=== PATIENT | male | born 1965 | race Caucasian/White ===

== ENCOUNTER → 2018-01-15 | Outpatient (CLI) | payer MEDICAID ==
[2018-01-15 10:16] LABS: HCT 49.8 % (39.0-53.0); HGB 16.3 gm/dL (13.0-17.5); MCH 31.2 pg (25.0-35.0); MCHC 32.7 g/dL (31.0-37.0); MCV 95.5 fL (80.0-100.0); Mean Platelet Volume 6.3; Platelet Count 214 k/uL (150-450); RBC 5.21 m/uL (4.30-5.90); RDW 13.2 % (11.5-15.5); WBC 6.2 k/uL (3.8-10.6)
[2018-01-15 10:27] LABS: Appearance,Urine Clear (Clear); Bilirubin,Urine Negative (Negative); Blood,Urine Negative (Negative); Color,Urine Yellow; Glucose,Urine (UA) Negative (Negative); Ketones,Urine Negative (Negative); Leukocyte Esterase,Urine Negative (Negative); Nitrite,Urine Negative (Negative); PH, Urine 5.5 (5.0-8.0); Protein,Urine Negative (Negative); Specific Gravity,Urine 1.016 (1.001-1.035); Urobilinogen,Urine <2.0 mg/dL (<2.0)
[2018-01-15 10:54] LABS: Albumin 4.1 g/dL (3.5-5.0); Calcium 9.1 mg/dL (8.4-10.2); Potassium 4.9 mmol/L (3.5-5.1); Total Bilirubin 0.5 mg/dL (0.2-1.3); Total Protein 6.9 g/dL (6.3-8.2); Uric Acid 6.6 mg/dL (3.5-8.5)
[2018-01-15 11:24] LABS: Prostate Specific Antigen 1.3 ng/mL (0.00-4.00)
== END | disposition home or self-care (01) ==
LOC: LABWHC1 09:24
PROVIDERS: ATTEND Family Medicine
DX: Z00.00 Encounter for general adult medical examination without abnormal findings (principal); M10.9 Gout, unspecified; Z13.9 Encounter for screening, unspecified
CPT/HCPCS: 36415; 80053; 80061; 81003; 84153; 84550; 85027; 86803

== ENCOUNTER → 2019-02-25 | Outpatient (CLI) | payer MEDICAID ==
[2019-02-25 13:53] LABS: HCT 52.1 % (39.0-53.0); HGB 17.5 gm/dL (13.0-17.5); MCH 32.3 pg (25.0-35.0); MCHC 33.6 g/dL (31.0-37.0); Mean Platelet Volume 5.8; Platelet Count 230 k/uL (150-450); RBC 5.42 m/uL (4.30-5.90); RDW 12.7 % (11.5-15.5); WBC 7.6 k/uL (3.8-10.6)
[2019-02-25 15:09] LABS: Appearance,Urine Clear (Clear); Bilirubin,Urine Negative (Negative); Blood,Urine Negative (Negative); Color,Urine Yellow; Glucose,Urine (UA) Negative (Negative); Ketones,Urine Negative (Negative); Leukocyte Esterase,Urine Negative (Negative); Nitrite,Urine Negative (Negative); PH, Urine 5.5 (5.0-8.0); Protein,Urine Trace (Negative); Specific Gravity,Urine 1.018 (1.001-1.035); Urobilinogen,Urine <2.0 mg/dL (<2.0)
[2019-02-25 20:46] LABS: African American GFR (CKD) 59.5 (60.0-200.0); Albumin 4.6 g/dL (3.80-4.90); Anion Gap 9.9 mmol/L (4.00-12.00); BUN/Creat Ratio 10.67 Ratio (12.00-20.00); Calcium 9.1 mg/dL (8.7-10.3); Carbon Dioxide 27.1 mmol/L (21.6-31.8); Chol/HDL Ratio 5.71; Globulin 2.3 g/dL (1.6-3.3); LDL Cholesterol,Calculated 158.8 mg/dL (0.0-131.0); Potassium 4.8 mmol/L (3.5-5.5); Total Bilirubin 0.9 mg/dL (0.3-1.2); Total Protein 6.9 g/dL (6.2-8.2); Uric Acid 6.8 mg/dL (3.7-8.7); VLDL Calculation 34.2 mg/dL (5.00-40.00)
== END | disposition home or self-care (01) ==
LOC: LABWHC1 12:39
PROVIDERS: ATTEND Family Medicine
DX: Z00.01 Encounter for general adult medical examination with abnormal findings (principal); M10.9 Gout, unspecified
CPT/HCPCS: 36415; 80053; 80061; 81003; 84153; 84550; 85027

== ENCOUNTER → 2020-02-21 | Outpatient (CLI) | payer MEDICAID ==
[2020-02-21 12:43] LABS: HCT 53.5 % (39.0-53.0); HGB 17.7 gm/dL (13.0-17.5); MCH 31.1 pg (25.0-35.0); MCHC 33.1 g/dL (31.0-37.0); Mean Platelet Volume 7.1; Platelet Count 237 k/uL (150-450); RDW 12.6 % (11.5-15.5); WBC 6.4 k/uL (3.8-10.6)
[2020-02-21 22:16] LABS: Albumin 4.5 g/dL (3.80-4.90); Albumin/Globulin Ratio 1.73 (1.60-3.17); Anion Gap 13.1 mmol/L (4.00-12.00); BUN/Creat Ratio 13.33 Ratio (12.00-20.00); Calcium 9.5 mg/dL (8.7-10.3); Carbon Dioxide 26.9 mmol/L (21.6-31.8); Chol/HDL Ratio 5.23; Globulin 2.6 g/dL (1.6-3.3); LDL Cholesterol,Calculated 147.4 mg/dL (0.0-131.0); Non-African American GFR(CKD) 50.9 (60.0-200.0); Potassium 5.6 mmol/L (3.5-5.5); Total Bilirubin 0.6 mg/dL (0.2-1.2); Total Protein 7.1 g/dL (6.2-8.2); Uric Acid 6.1 mg/dL (3.7-8.7); VLDL Calculation 21.6 mg/dL (5.00-40.00)
[2020-02-21 22:24] LABS: Prostate Specific Antigen 1.7 ng/mL (0.0-3.5)
== END | disposition home or self-care (01) ==
LOC: LABWHC1 11:00
PROVIDERS: ATTEND Family Medicine
DX: Z00.01 Encounter for general adult medical examination with abnormal findings (principal); M10.9 Gout, unspecified
CPT/HCPCS: 36415; 80053; 80061; 84153; 84550; 85027

== ENCOUNTER 2020-08-10 16:33 | Emergency (ER) | payer MEDICAID ==
[2020-08-10 16:42] VITALS: BP 119/79
[2020-08-10] MEDS ORDERED: SODIUM CHLORIDE 0.9% 1,000 ML IV STA (17:38)
[2020-08-10] MEDS ORDERED: ACETAMINOPHEN TAB 500 MG TAB PO STA (17:45)
[2020-08-10] MEDS ORDERED: IBUPROFEN 600 MG TAB PO STA (17:45)
[2020-08-10 18:22] LABS: Basophils % (A) 1 %; Eosinophils % (A) 0 %; HGB 16.6 gm/dL (13.0-17.5); Lymphocytes # (A) 0.5 k/uL (1.0-4.8); Lymphocytes % (A) 12 %; MCH 32.2 pg (25.0-35.0); MCHC 34.6 g/dL (31.0-37.0); MCV 93.2 fL (80.0-100.0); Mean Platelet Volume 7.2; Monocytes # (A) 0.2 k/uL (0-1.0); Monocytes % (A) 5 %; Neutrophils # (A) 3.7 k/uL (1.3-7.7); Neutrophils % (A) 82 %; Platelet Count 109 k/uL (150-450); RBC 5.15 m/uL (4.30-5.90); RDW 12.5 % (11.5-15.5); WBC 4.5 k/uL (3.8-10.6)
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
[2020-08-10 18:38] LABS: Calcium 8.3 mg/dL (8.4-10.2); Potassium 4.4 mmol/L (3.5-5.1); Total Bilirubin 0.9 mg/dL (0.2-1.3); Total Protein 6.7 g/dL (6.3-8.2)
--- NOTE | 2020-08-10 19:05 | XR ---
EXAMINATION TYPE: XR chest 1V portable DATE OF EXAM: 08/10/2020 COMPARISON: NONE HISTORY: Cough. TECHNIQUE: Single frontal view of the chest is obtained. FINDINGS: There are mild to moderate peripheral opacities in the mid to lower lungs bilaterally. No pleural effusion, or pneumothorax seen. The cardiac silhouette size is within normal limits. The o sseous structures are intact. IMPRESSION: Mild to moderate bilateral opacities, concerning for infiltrates.
[2020-08-10 19:23] VITALS: PULSE 88; RESP 18; TEMP 98.4
== END 2020-08-10 19:23 | disposition home or self-care (01) ==
LOC: EC 16:33
DX: U07.1 COVID-19 (principal)
CPT/HCPCS: 36415; 71045; 80053; 83690; 85025; 86140; 87635; 96360; 99285

== ENCOUNTER 2020-08-12 19:54 | Inpatient (IN) | payer MEDICAID ==
[2020-08-12] MEDS ORDERED: ALBUTEROL HFA INHALER INHALATION STA (21:26)
--- NOTE | 2020-08-12 21:48 | XR ---
EXAMINATION TYPE: XR chest 1V portable DATE OF EXAM: 08/12/2020 COMPARISON: NONE HISTORY: Cough. TECHNIQUE: Single frontal view of the chest is obtained. FINDINGS: There are bilateral diffuse moderate patchy opacities. No pleural effusion, or pneumothora x seen. The cardiac silhouette size is within normal limits. The osseous structures are intact. IMPRESSION: Bilateral infiltrates.
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
[2020-08-12 22:12] LABS: Basophils % (A) 0 %; Eosinophils % (A) 1 %; HCT 43.4 % (39.0-53.0); HGB 15.3 gm/dL (13.0-17.5); Lymphocytes # (A) 0.6 k/uL (1.0-4.8); Lymphocytes % (A) 11 %; MCH 32.5 pg (25.0-35.0); MCHC 35.2 g/dL (31.0-37.0); MCV 92.3 fL (80.0-100.0); Mean Platelet Volume 7.8; Monocytes # (A) 0.2 k/uL (0-1.0); Monocytes % (A) 3 %; Neutrophils # (A) 4.6 k/uL (1.3-7.7); Neutrophils % (A) 85 %; Platelet Count 103 k/uL (150-450); RDW 12.5 % (11.5-15.5); WBC 5.4 k/uL (3.8-10.6)
[2020-08-12 22:28] LABS: Albumin 3.1 g/dL (3.5-5.0); C Reactive Protein 87.6 mg/L (<10.0); Calcium 8.2 mg/dL (8.4-10.2); Magnesium 2.1 mg/dL (1.6-2.3); Potassium 4.1 mmol/L (3.5-5.1); Total Bilirubin 0.7 mg/dL (0.2-1.3); Total Protein 5.8 g/dL (6.3-8.2)
[2020-08-12 22:29] LABS: INR 0.9 (<1.2); Partial Thromboplastin Time 27.6 sec (22.0-30.0); Prothrombin Time 9.6 sec (9.0-12.0)
[2020-08-12] MEDS ORDERED: SODIUM CHLORIDE 0.9% 1,000 ML IV ONE (22:32)
[2020-08-12] MEDS ORDERED: DEXAMETHASONE SOD PHOSPHATE 10 MG/ML 1 ML VIAL IV STA (22:34)
[2020-08-12] MEDS ORDERED: IBUPROFEN 800 MG TAB PO PRN (22:47)
[2020-08-12] MEDS ORDERED: ONDANSETRON 4 MG/2 ML VIAL IVP PRN (22:47)
[2020-08-12] MEDS ORDERED: NALOXONE 0.4 MG/ML 1 ML VIAL IV PRN (22:47)
[2020-08-12] MEDS ORDERED: ACETAMINOPHEN TAB 325 MG TAB PO PRN (22:47)
[2020-08-12 23:11] LABS: D-Dimer 0.79 mg/L FEU (<0.60)
[2020-08-12] MEDS: SODIUM CHLORIDE 0.9% 1,000 ML IV SCH (23:43)
[2020-08-13] MEDS: ASCORBIC ACID 500 MG TAB PO SCH (08:25)
[2020-08-13] MEDS: ZINC SULFATE 220 MG CAP PO SCH (08:25)
[2020-08-13] MEDS ORDERED: ASCORBIC ACID IVPB SCH (09:00)
[2020-08-13] MEDS ORDERED: SODIUM CHLORIDE 0.9% IVPB SCH (09:00)
[2020-08-13] MEDS ORDERED: DEXAMETHASONE SOD PHOSPHATE 10 MG/ML 1 ML VIAL IV SCH (09:00)
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
[2020-08-13] MEDS ORDERED: REMDESIVIR 200 MG in SODIUM CHLORIDE 0.9% 250 ML IVPB ONE (10:00)
[2020-08-13] MEDS: CHOLECALCIFEROL 25 MCG (1000 IU) TABLET PO SCH (11:10)
[2020-08-13] MEDS: ENOXAPARIN 40 MG/0.4 ML SYRINGE SQ SCH (11:10)
[2020-08-13 12:42] LABS: Ferritin 2550.6 ng/mL (22.0-322.0)
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
[2020-08-13] MEDS: SODIUM CHLORIDE 0.9% 1,000 ML IV SCH ×2 (13:53→20:06)
[2020-08-14] MEDS: CHOLECALCIFEROL 25 MCG (1000 IU) TABLET PO SCH (08:22)
[2020-08-14] MEDS: allopurinoL 100 MG TAB PO SCH (08:22)
[2020-08-14] MEDS: ASCORBIC ACID 500 MG TAB PO SCH (08:23)
[2020-08-14] MEDS: ZINC SULFATE 220 MG CAP PO SCH (08:23)
[2020-08-14] MEDS: ENOXAPARIN 40 MG/0.4 ML SYRINGE SQ SCH (08:23)
[2020-08-14] MEDS: DEXAMETHASONE SOD PHOSPHATE 10 MG/ML 1 ML VIAL PO SCH (08:23)
[2020-08-14] MEDS ORDERED: NON FORMULARY DRUG (Omega-3 Fatty Acids/Fish Oil [Fish Oil 1,000 Mg Softgel] 1 EACH Capsul PO SCH (09:00)
[2020-08-14] MEDS ORDERED: REMDESIVIR 100 MG in SODIUM CHLORIDE 0.9% 250 ML IVPB SCH (10:00)
--- NOTE | 2020-08-14 10:12 | P.PN ---
Subjective Progress Note Date: 08/14/20 This 55-year-old male patient came into the emergency yesterday diagnosed having a COVID 19 related pneumonia. The patient was diagnosed with infection on 08/10/2020. pulse ox was 83%. He was getting short of breath. He also reports some nausea. He was fever and chills at home. He also had some diarrhea. His symptoms started exactly a week ago. His diagnosis was established on 08/10/2020. No abdominal pain. No altered mentation. He is otherwise a healthy individual.. The patient's blood work showed a LDH of 1640, his CRP was 87, d-dimer was 0.79, creatinine was at 1.3. Chest x-ray showed bilateral pulmonary infiltrates and currently the patient is on 2 L of oxygen by nasal cannula. He was started on Decadron. 08/14/2020 the patient is being seen in follow-up regarding his Covid 19 related pneumonia. He was hospitalized yesterday and he was started on Decadron and REM. On today's evaluation, his oxygenation is slightly gotten worse and he is currently a liters of oxygen nasal cannula. He remains on Lovenox 40 mg subcu for DVT prophylaxis and he is d-dimer was nonelevated. He is afebrile. She however, the patient is feeling well and denies having any worsening shortness of breath. Objective - Vital Signs Vital signs: Vital Signs Temp 98.2 F 08/14/20 08:00 Pulse 72 08/14/20 08:00 Resp 18 08/14/20 08:00 BP 149/82 08/14/20 08:00 Pulse Ox 90 L 08/14/20 08:00 Intake & Output 08/13/20 08/14/20 08/14/20 18:59 06:59 18:59 Intake Total 900 350 Balance 900 350 Intake: Intake, IV Titration 900 Amount Sodium Chloride 0.9% 1, 900 000 ml @ 75 mls/hr IV . [id number] [facility] Rx#:[id number] Oral 350 Other: Voiding Method Toilet Toilet # Voids 3 2 - Exam The patient appeared well nourished and normally developed. Vital signs as documented. Head exam is unremarkable. No scleral icterus or corneal arcus noted. Neck is without jugular venous distension, thyromegaly, or carotid b ruits. Carotid upstrokes are brisk bilaterally. Lungs are clear to auscultation and percussion. Cardiac exam reveals the PMI to be normally sized and situated. Rhythm is regular. First and second heart sounds normal. No murmurs, rubs or gallops. Abdominal exam reveals normal bowel sounds, no masses, no organomegaly and no aortic enlargement. Extremities are nonedematous and both femoral and pedal pulses are normal.Examination of the skin revealed no evidence of significant rashes, suspicious appearing nevi or other concerning lesions.Neurologically, the patient is awake and alert and the patient does not have any focal neurological deficit. Cranial nerves are essentially intact. - Labs CBC & Chem 7: 08/12/20 21:48 08/12/20 21:48 Labs: Abnormal Lab Results - Last 24 Hours (Table) 08/12/20 08/12/20 Range/Units 21:48 21:48 Ferritin 2550.6 H (22.0-322.0) ng/mL Procalcitonin 0.44 H (0.02-0.09) ng/mL Microbiology - Last 24 Hours (Table) 08/12/20 22:03 Blood Culture - Preliminary Blood No Growth after 24 hours 08/12/20 22:03 Blood Culture - Preliminary Blood No Growth after 24 hours Assessment and Plan Plan: 1 acute Covid 19 related pneumonia, symptoms started approximately a week ago. Diagnosis established on 08/10/2020, clinically stable 2 acute hypoxic respiratory failure currently on 4 L nasal cannula 3 nausea and diarrhea secondary to above, improved 4 Thrombocytopenia and lymphopenia secondary to above 5 Mild transaminitis secondary to above Plan Oxygen 4 L per minute nasal cannula Lovenox 40 mg subcu every 24 hours Decadron 6 mg by mouth daily Remdesivir per protocol and the patient is currently on day #2 Vitamin C and vitamin D supplements in addition to losing Normal saline at the rate of 75 mL an hour We'll continue to follow.
[2020-08-14 11:26] LABS: Basophils # (A) 0.01 X 10*3/uL (0.00-0.10); Basophils % (A) 0.2 %; Eosinophils # (A) 0 X 10*3/uL (0.04-0.35); Eosinophils % (A) 0 %; HCT 41.2 % (39.6-50.0); HGB 13.9 g/dL (13.0-17.0); Lymphocytes # (A) 0.77 X 10*3/uL (0.90-5.00); Lymphocytes % (A) 11.9 %; MCH 31.3 pg (27.0-32.0); MCHC 33.7 g/dL (32.0-37.0); MCV 92.8 fL (80.0-97.0); Mean Platelet Volume 10.5 fL (9.5-12.2); Monocytes # (A) 0.38 X 10*3/uL (0.20-1.00); Monocytes % (A) 5.9 %; Neutrophils # (A) 5.27 X 10*3/uL (1.80-7.70); Neutrophils % (A) 81.5 %; Platelet Count 139 X 10*3/uL (140-440); RBC 4.44 X 10*6/uL (4.40-5.60); RDW 12.3 % (11.5-14.5); WBC 6.46 X 10*3/uL (4.50-10.00)
[2020-08-14 15:20] LABS: African American GFR (CKD) 96.4 (60.0-200.0); Albumin 3.3 g/dL (3.80-4.90); Albumin/Globulin Ratio 1.83 (1.60-3.17); Anion Gap 8.8 mmol/L (4.00-12.00); Calcium 7.9 mg/dL (8.7-10.3); Carbon Dioxide 25.2 mmol/L (21.6-31.8); Globulin 1.8 g/dL (1.6-3.3); Non-African American GFR(CKD) 83.2 (60.0-200.0); Potassium 4.4 mmol/L (3.5-5.5); Total Bilirubin 0.5 mg/dL (0.2-1.2); Total Protein 5.1 g/dL (6.2-8.2)
[2020-08-14] MEDS: SODIUM CHLORIDE 0.9% 1,000 ML IV SCH (16:45)
--- NOTE | 2020-08-14 23:30 | P.PN ---
Subjective Progress Note Date: 08/14/20 Principal diagnosis: COVID Pneumonia Mr. Clayton is a 55-year-old male with a past medical history of gout coming in with a chief complaint of difficulty in breathing. Patient states that he was diagnosed with COVID 19 on 08/10. 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 Patient has been having fevers and myalgias for the past 1 week. He was also having generalized fatigue and weakness. Has been having fevers on and off. He reports nausea and loss of taste and smell. Reports some diarrhea as well. No blood in the stool. No abdominal pain. Patient mentions that his family members have been tested for Covid last year. Patient denies having any chest pain or palpitations. Denies having any hematuria or dysuria. He states that overall he feels very tired and wants to take rest. In the ER, patient had a chest x-ray done showing bilateral infiltrates. EKG showing sinus tachycardia. And blood work showing white count of 5.4, hemoglobin 15.3, platelets 103. D-dimer 0.79. Sodium 137, potassium 4.1, chloride 103, bicarbonate 29, BUN 21, creatinine 1.30. Ferritin 2550, AST 159, ALT 98, LDH 1640, CRP 87.6, albumin 3.1. On 08/14/2020 -patient was seen and examined at the bedside. He states that he feels less fatigued compared to yesterday. He still has mild difficulty in breathing. He denies having any fevers chills or rigors. No chest pain or p alpitations. No abdominal pain nausea vomiting or diarrhea. No dysuria or hematuria. On reviewing the vitals temperature of 98, heart rate 81, respiratory rate 18, blood pressure 136 x 82 saturating at 94% on 4 L of nasal cannula. On reviewing the labs white count of 6.4, hemoglobin 13.9, platelets 139. Sodium 141, potassium 4.4, chloride 104, bicarb 25, BUN 17, creatinine 1.0 AST 357, ALT 262. Active Medications Acetaminophen (Acetaminophen Tab 325 Mg Tab) 650 mg PO Q6HR PRN PRN Reason: Mild Pain or Fever > 100.5 Last Admin: 08/13/20 02:05 Dose: 650 mg Documented by: Allopurinol (Allopurinol 100 Mg Tab) 200 mg PO DAILY [facility] Last Admin: 08/14/20 08:22 Dose: 200 mg Documented by: Ascorbic Acid (Ascorbic Acid 500 Mg Tab) 500 mg PO DAILY [facility] Last Admin: 08/14/20 08:23 Dose: 500 mg Documented by: Cholecalciferol (Cholecalciferol 25 Mcg (1000 Iu) Tablet) 25 mcg PO DAILY [facility] Last Admin: 08/14/20 08:22 Dose: 25 mcg Documented by: Dexamethasone Sodium Phosphate (Dexamethasone Sod Phosphate 10 Mg/Ml 1 Ml Vial) 6 mg PO DAILY [facility] Last Admin: 08/14/20 08:23 Dose: 6 mg Documented by: Enoxaparin Sodium (Enoxaparin 40 Mg/0.4 Ml Syringe) 40 mg SQ DAILY [facility] Last Admin: 08/14/20 08:23 Dose: 40 mg Documented by: Sodium Chloride (Saline 0.9%) 1,000 mls @ 75 mls/hr IV .[id number] [facility] Last Admin: 08/14/20 16:45 Dose: 75 mls/hr Documented by: Remdesivir 100 mg/ Sodium (Chloride) 250 mls @ 250 mls/hr IVPB DAILY [facility] Stop: 08/17/20 09:59 Ibuprofen (Ibuprofen 800 Mg Tab) 800 mg PO Q8H PRN PRN Reason: Mild Pain or Fever > 100.5 Naloxone HCl (Naloxone 0.4 Mg/Ml 1 Ml Vial) 0.2 mg IV Q2M PRN PRN Reason: Opioid Reversal Ondansetron HCl (Ondansetron 4 Mg/2 Ml Vial) 4 mg IVP Q8HR PRN PRN Reason: Nausea And Vomiting Zinc Sulfate (Zinc Sulfate 220 Mg Cap) 220 mg PO DAILY [facility] Last Admin: 08/14/20 08:23 Dose: 220 mg Documented by: Objective - Vital Signs Vital signs: Vital Signs Temp 98.2 F 08/14/20 08:00 Pulse 72 08/14/20 08:00 Resp 18 08/14/20 08:00 BP 149/82 08/14/20 08:00 Pulse Ox 90 L 08/14/20 08:00 Intake & Output 08/13/20 08/14/20 08/14/20 18:59 06:59 18:59 Intake Total 900 350 Balance 900 350 Intake: Intake, IV Titration 900 Amount Sodium Chloride 0.9% 1, 900 000 ml @ 75 mls/hr IV . [id number] [facility] Rx#:[id number] Oral 350 Other: Voiding Method Toilet Toilet # Voids 3 2 - Exam PHYSICAL EXAMINATION: GENERAL: The patient is alert and oriented x3, not in any acute distress. HEENT: Pupils are round and equally reacting to light. EOMI. No scleral icterus. No pallor. CARDIOVASCULAR: S1 and S2 present. PULMONARY: Bilateral coarse breath sounds. No crackles. ABDOMEN: Abdomen is soft. Nontender. Nondistended. Normal bowel sounds. MUSCULOSKELETAL: No joint swelling or deformity. EXTREMITIES: No cyanosis, clubbing, or pedal edema. NEUROLOGICAL: Gross neurological examination did not reveal any focal deficits. SKIN: No rashes. - Labs CBC & Chem 7: 08/14/20 07:18 08/14/20 07:18 Labs: Abnormal Lab Results - Last 24 Hours (Table) 08/12/20 08/12/20 Range/Units 21:48 21:48 Ferritin 2550.6 H (22.0-322.0) ng/mL Procalcitonin 0.44 H (0.02-0.09) ng/mL Microbiology - Last 24 Hours (Table) 08/12/20 22:03 Blood Culture - Preliminary Blood No Growth after 24 hours 08/12/20 22:03 Blood Culture - Preliminary Blood No Growth after 24 hours Assessment and Plan Assessment: ASSESSMENT Acute hypoxic respiratory failure secondary to COVID pneumonia Nausea and diarrhea - 2 to Covid infection Transaminitis - trending up Lymphopenia and thrombocytopenia Elevated inflammatory markers Chronic kidney disease stage II Mild protein calorie malnutrition Obesity with BMI of 34.0 PLAN: Patient is requiring 4 L of oxygen to keep his saturations above 90%. He has been started on Decadron, Lovenox, and zinc, vitamin C supplements. He has been started on Remdesevir. There is an uptrend of AST ALT, could be due to Covid infection or remdesivir. We will also check hepatitis panel and a repeat comprehensive metabolic panel for tomorrow morning. Will continue monitoring chest x-ray and inflammatory markers. Further recommendations to follow depending on the progress of the patient.
[2020-08-15] MEDS: SODIUM CHLORIDE 0.9% 1,000 ML IV SCH ×2 (04:23→19:33)
--- NOTE | 2020-08-15 07:46 | XR ---
EXAMINATION TYPE: XR chest 1V portable DATE OF EXAM: 08/15/2020 COMPARISON: 08/12/2020 HISTORY: Shortness of breath TECHNIQUE: Single frontal view of the chest is obtained. FINDINGS: Patchy diffuse partially consolidative/airspace opacity bilaterally predominantly in the lateral lung gonzalez essentially unchanged compared to the prior study. There is no pleural effusion or pneumothorax. The heart size is normal. The osseous structures are in tact. Impression: no change in the bilateral scattered partially consolidative lung infiltrates is described above.
[2020-08-15 08:23] LABS: Basophils % (A) 1 %; Eosinophils % (A) 0 %; HCT 44.4 % (39.0-53.0); HGB 14.8 gm/dL (13.0-17.5); Lymphocytes # (A) 0.6 k/uL (1.0-4.8); Lymphocytes % (A) 10 %; MCHC 33.4 g/dL (31.0-37.0); MCV 92.9 fL (80.0-100.0); Mean Platelet Volume 7.6; Monocytes # (A) 0.5 k/uL (0-1.0); Monocytes % (A) 7 %; Neutrophils # (A) 5.3 k/uL (1.3-7.7); Neutrophils % (A) 80 %; RBC 4.77 m/uL (4.30-5.90); RDW 13.1 % (11.5-15.5); WBC 6.6 k/uL (3.8-10.6)
[2020-08-15 08:28] LABS: Platelet Count 173 k/uL (150-450)
[2020-08-15 08:31] LABS: ALT 243 U/L (4-49); AST 258 U/L (17-59); African American GFR (CKD) >90 (>60 ml/min/1.73 sqM); Albumin/Globulin Ratio 1.2; Alkaline Phosphatase 84 U/L (38-126); Anion Gap 5 mmol/L; Blood Urea Nitrogen 22 mg/dL (9-20); C Reactive Protein 25.1 mg/L (<10.0); Carbon Dioxide 30 mmol/L (22-30); Chloride 103 mmol/L (98-107); Globulin 2.5 g/dL; Glucose 127 mg/dL (74-99); Non-African American GFR(CKD) 89 (>60 ml/min/1.73 sqM); Potassium 4.3 mmol/L (3.5-5.1); Sodium 138 mmol/L (137-145); Total Bilirubin 0.8 mg/dL (0.2-1.3); Total Protein 5.5 g/dL (6.3-8.2)
[2020-08-15] MEDS: CHOLECALCIFEROL 25 MCG (1000 IU) TABLET PO SCH (08:45)
[2020-08-15] MEDS: allopurinoL 100 MG TAB PO SCH (08:45)
[2020-08-15] MEDS: REMDESIVIR 100 MG in SODIUM CHLORIDE 0.9% 250 ML IVPB SCH (08:45)
[2020-08-15] MEDS: ASCORBIC ACID 500 MG TAB PO SCH (08:45)
[2020-08-15] MEDS: ENOXAPARIN 40 MG/0.4 ML SYRINGE SQ SCH (08:45)
[2020-08-15] MEDS: ZINC SULFATE 220 MG CAP PO SCH (08:45)
[2020-08-15] MEDS: DEXAMETHASONE SOD PHOSPHATE 10 MG/ML 1 ML VIAL PO SCH (08:45)
[2020-08-15 09:25] LABS: LDH 1290 U/L (313-618)
[2020-08-15] MEDS ORDERED: REMDESIVIR 100 MG in SODIUM CHLORIDE 0.9% 250 ML IVPB SCH (10:00)
[2020-08-15 12:08] LABS: Hepatitis B Core IgM Non-Reactive (Non-Reactive); Hepatitis B Surface Antigen Non-Reactive (Non-Reactive)
[2020-08-15 12:09] LABS: Hepatitis A Antibody IgM Non-Reactive (Non-Reactive); Hepatitis C IgG Antibody Non-Reactive (Non-Reactive)
--- NOTE | 2020-08-15 14:15 | P.PN ---
Subjective Progress Note Date: 08/15/20 This 55-year-old male patient came into the emergency yesterday diagnosed having a COVID 19 related pneumonia. The patient was diagnosed with infection on 08/10/2020. pulse ox was 83%. He was getting short of breath. He also reports some nausea. He was fever and chills at home. He also had some diarrhea. His symptoms started exactly a week ago. His diagnosis was established on 08/10/2020. No abdominal pain. No altered mentation. He is otherwise a healthy individual.. The patient's blood work showed a LDH of 1640, his CRP was 87, d-dimer was 0.79, creatinine was at 1.3. Chest x-ray showed bilateral pulmonary infiltrates and currently the patient is on 2 L of oxygen by nasal cannula. He was started on Decadron. 08/14/2020 the patient is being seen in follow-up regarding his Covid 19 related pneumonia. He was hospitalized yesterday and he was started on Decadron and REM. On today's evaluation, his oxygenation is slightly gotten worse and he is currently a liters of oxygen nasal cannula. He remains on Lovenox 40 mg subcu for DVT prophylaxis and he is d-dimer was nonelevated. He is afebrile. She however, the patient is feeling well and denies having any worsening shortness of breath. 08/15/2020, the patient is still on the same treatment regarding his Covid 19 related pneumonia. He remains on 4 L of oxygen by nasal cannula.. His chest x- ray from today is showing stable following her bilateral pulmonary infiltrates, unchanged compared to yesterday. He still using incentive spirometer. He is still on steroids and is currently on Decadron and he is on day #3 of REM. Is LDH level is down to 1290, his CRP level is down to 25. His liver function tests have been also slightly abnormal. The there are all within same range. His CBC shows a white cell count of 6 with a hemoglobin of 14.8 and he still has some lymphopenia. His d-dimer at the time of admission was 0.79. Objective - Vital Signs Vital signs: Vital Signs Temp 98 F 08/15/20 08:00 Pulse 63 08/15/20 08:00 Resp 16 08/15/20 08:00 BP 145/87 08/15/20 08:00 Pulse Ox 96 08/15/20 08:00 Intake & Output 08/14/20 08/15/20 08/15/20 18:59 06:59 18:59 Other: Voiding Method Toilet # Voids 3 2 - Exam The patient appeared well nourished and normally developed. Vital signs as documented. Head exam is unremarkable. No scleral icterus or corneal arcus not ed. Neck is without jugular venous distension, thyromegaly, or carotid bruits. Carotid upstrokes are brisk bilaterally. Lungs are clear to auscultation and percussion. Cardiac exam reveals the PMI to be normally sized and situated. Rhythm is regular. First and second heart sounds normal. No murmurs, rubs or gallops. Abdominal exam reveals normal bowel sounds, no masses, no organomegaly and no aortic enlargement. Extremities are nonedematous and both femoral and pedal pulses are normal.Examination of the skin revealed no evidence of significant rashes, suspicious appearing nevi or other concerning lesions.Neurologically, the patient is awake and alert and the patient does not have any focal neurological deficit. Cranial nerves are essentially intact. - Labs CBC & Chem 7: 08/15/20 07:52 08/15/20 07:52 Labs: Abnormal Lab Results - Last 24 Hours (Table) 08/14/20 08/15/20 08/15/20 Range/Units 07:18 07:52 07:52 Lymphocytes # 0.6 L (1.0-4.8) k/uL BUN 22 H (9-20) mg/dL Glucose 115 H 127 H (70-110) mg/dL Calcium 7.9 L 8.0 L (8.7-10.3) mg/dL AST 357 H 258 H (14-35) U/L ALT 262 H 243 H (10-49) U/L Lactate Dehydrogenase 1290 H (313-618) U/L C-Reactive Protein 25.1 H (<10.0) mg/L Total Protein 5.1 L 5.5 L (6.2-8.2) g/dL Albumin 3.30 L 3.0 L (3.80-4.90) g/dL Microbiology - Last 24 Hours (Table) 08/12/20 22:03 Blood Culture - Preliminary Blood No Growth after 48 hours 08/12/20 22:03 Blood Culture - Preliminary Blood No Growth after 48 hours Assessment and Plan Plan: 1 acute Covid 19 related pneumonia, symptoms started approximately a week ago. Diagnosis established on 08/10/2020, clinically stable 2 acute hypoxic respiratory failure currently on 4 L nasal cannula 3 nausea and diarrhea secondary to above, improved 4 Thrombocytopenia and lymphopenia secondary to above, platelet counts of improved and continues to have some lymphopenia. 5 Mild transaminitis secondary to above Plan Oxygen will be weaned down to 3 L, he is using incentive spirometer and he is feeling better and he is feeling less short of breath. Lovenox 40 mg subcu every 24 hours Decadron 6 mg by mouth daily Remdesivir per protocol and the patient is currently on day #3 Vitamin C and vitamin D supplements in addition to losing Normal saline will be kept on the KVO We'll continue to follow.
--- NOTE | 2020-08-16 00:21 | P.PN ---
Subjective Progress Note Date: 08/15/20 Principal diagnosis: COVID Pneumonia Mr. Clayton is a 55-year-old male with a past medical history of gout coming in with a chief complaint of difficulty in breathing. Patient states that he was diagnosed with COVID 19 on 08/10. 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 Patient has been having fevers and myalgias for the past 1 week. He was also having generalized fatigue and weakness. Has been having fevers on and off. He reports nausea and loss of taste and smell. Reports some diarrhea as well. No blood in the stool. No abdominal pain. Patient mentions that his family members have been tested for Covid last year. Patient denies having any chest pain or palpitations. Denies having any hematuria or dysuria. He states that overall he feels very tired and wants to take rest. In the ER, patient had a chest x-ray done showing bilateral infiltrates. EKG showing sinus tachycardia. And blood work showing white count of 5.4, hemoglobin 15.3, platelets 103. D-dimer 0.79. Sodium 137, potassium 4.1, chloride 103, bicarbonate 29, BUN 21, creatinine 1.30. Ferritin 2550, AST 159, ALT 98, LDH 1640, CRP 87.6, albumin 3.1. On 08/14/2020 -patient was seen and examined at the bedside. He states that he feels less fatigued compared to yesterday. He still has mild difficulty in breathing. He denies having any fevers chills or rigors. No chest pain or p alpitations. No abdominal pain nausea vomiting or diarrhea. No dysuria or hematuria. On reviewing the vitals temperature of 98, heart rate 81, respiratory rate 18, blood pressure 136 x 82 saturating at 94% on 4 L of nasal cannula. On reviewing the labs white count of 6.4, hemoglobin 13.9, platelets 139. Sodium 141, potassium 4.4, chloride 104, bicarb 25, BUN 17, creatinine 1.0 AST 357, ALT 262. On 08/15/2020 -patient is seen and examined at the bedside. He is sitting up in a chair by the window and states that his breathing is better. He denies having any fevers chills or rigors. Patient is requiring 4 L of oxygen and saturating around 95%. He denies having any abdominal pain nausea vomiting or diarrhea. He states his myalgias have improved and his appetite is picking up. He denies having any abdominal pain nausea vomiting or diarrhea. No dysuria or hematuria. On reviewing the vitals temperature of 98.4, heart rate 61, respiratory 22, blood pressure 152 x 79. Reviewing labs white count of 6.6, hemoglobin 14.8, platelets 173. His hepatitis panel has come back negative. AST ALT have been slightly high and there is no uptrend. Active Medications Acetaminophen (Acetaminophen Tab 325 Mg Tab) 650 mg PO Q6HR PRN PRN Reason: Mild Pain or Fever > 100.5 Last Admin: 08/13/20 02:05 Dose: 650 mg Documented by: Allopurinol (Allopurinol 100 Mg Tab) 200 mg PO DAILY [facility] Last Admin: 08/15/20 08:45 Dose: 200 mg Documented by: Ascorbic Acid (Ascorbic Acid 500 Mg Tab) 500 mg PO DAILY [facility] Last Admin: 08/15/20 08:45 Dose: 500 mg Documented by: Cholecalciferol (Cholecalciferol 25 Mcg (1000 Iu) Tablet) 25 mcg PO DAILY [facility] Last Admin: 08/15/20 08:45 Dose: 25 mcg Documented by: Dexamethasone Sodium Phosphate (Dexamethasone Sod Phosphate 10 Mg/Ml 1 Ml Vial) 6 mg PO DAILY [facility] Last Admin: 08/15/20 08:45 Dose: 6 mg Documented by: Enoxaparin Sodium (Enoxaparin 40 Mg/0.4 Ml Syringe) 40 mg SQ DAILY [facility] Last Admin: 08/15/20 08:45 Dose: 40 mg Documented by: Sodium Chloride (Saline 0.9%) 1,000 mls @ 20 mls/hr IV .Q24H [facility] Last Admin: 08/15/20 19:33 Dose: 20 mls/hr Documented by: Remdesivir 100 mg/ Sodium (Chloride) 250 mls @ 250 mls/hr IVPB DAILY [facility] Stop: 08/17/20 09:59 Last Admin: 08/15/20 08:45 Dose: 250 mls/hr Documented by: Ibuprofen (Ibuprofen 800 Mg Tab) 800 mg PO Q8H PRN PRN Reason: Mild Pain or Fever > 100.5 Naloxone HCl (Naloxone 0.4 Mg/Ml 1 Ml Vial) 0.2 mg IV Q2M PRN PRN Reason: Opioid Reversal Ondansetron HCl (Ondansetron 4 Mg/2 Ml Vial) 4 mg IVP Q8HR PRN PRN Reason: Nausea And Vomiting Zinc Sulfate (Zinc Sulfate 220 Mg Cap) 220 mg PO DAILY [facility] Last Admin: 08/15/20 08:45 Dose: 220 mg Documented by: Objective - Vital Signs Vital signs: Vital Signs Temp 98 F 08/15/20 08:00 Pulse 63 08/15/20 08:00 Resp 16 08/15/20 08:00 BP 145/87 08/15/20 08:00 Pulse Ox 96 08/15/20 08:00 Intake & Output 08/14/20 08/15/20 08/15/20 18:59 06:59 18:59 Other: Voiding Method Toilet # Voids 3 2 - Exam PHYSICAL EXAMINATION: GENERAL: The patient is alert and oriented x3, not in any acute distress. HEENT: Pupils are round and equally reacting to light. EOMI. No scleral icterus. CARDIOVASCULAR: S1 and S2 present. PULMONARY: Bilateral coarse breath sounds. No crackles. ABDOMEN: Abdomen is soft. Nontender. Nondistended. Normal bowel sounds. MUSCULOSKELETAL: No joint swelling or deformity. EXTREMITIES: No cyanosis, clubbing, or pedal edema. NEUROLOGICAL: Gross neurological examination did not reveal any focal deficits. - Labs CBC & Chem 7: 08/15/20 07:52 08/15/20 07:52 Labs: Abnormal Lab Results - Last 24 Hours (Table) 08/14/20 08/15/20 08/15/20 Range/Units 07:18 07:52 07:52 Lymphocytes # 0.6 L (1.0-4.8) k/uL BUN 22 H (9-20) mg/dL Glucose 115 H 127 H (70-110) mg/dL Calcium 7.9 L 8.0 L (8.7-10.3) mg/dL AST 357 H 258 H (14-35) U/L ALT 262 H 243 H (10-49) U/L Lactate Dehydrogenase 1290 H (313-618) U/L C-Reactive Protein 25.1 H (<10.0) mg/L Total Protein 5.1 L 5.5 L (6.2-8.2) g/dL Albumin 3.30 L 3.0 L (3.80-4.90) g/dL Microbiology - Last 24 Hours (Table) 08/12/20 22:03 Blood Culture - Preliminary Blood No Growth after 48 hours 08/12/20 22:03 Blood Culture - Preliminary Blood No Growth after 48 hours Assessment and Plan Assessment: ASSESSMENT Acute hypoxic respiratory failure secondary to COVID pneumonia Nausea and diarrhea - 2 to Covid infection Transaminitis - trending up Lymphopenia and thrombocytopenia Elevated inflammatory markers Chronic kidney disease stage II Mild protein calorie malnutrition Obesity with BMI of 34.0 PLAN: Patient is requiring 4 L of oxygen to keep his saturations above 94%. Continue on Decadron, Lovenox, and zinc, vitamin C supplements. On Remdesevir day #3 . There is an uptrend of AST ALT, could be due to Covid infection. Hepatitis panel negative. Will repeat comprehensive metabolic panel for anthony orrow morning. Will continue monitoring chest x-ray and inflammatory markers. Encouraged to use incentive spirometry and activity as tolerated. Further recommendations to follow depending on the progress of the patient.
[2020-08-16] MEDS: DEXAMETHASONE SOD PHOSPHATE 10 MG/ML 1 ML VIAL PO SCH (09:11)
[2020-08-16] MEDS: ENOXAPARIN 40 MG/0.4 ML SYRINGE SQ SCH (09:11)
[2020-08-16] MEDS: REMDESIVIR 100 MG in SODIUM CHLORIDE 0.9% 250 ML IVPB SCH (09:11)
[2020-08-16] MEDS: ZINC SULFATE 220 MG CAP PO SCH (09:12)
[2020-08-16] MEDS: allopurinoL 100 MG TAB PO SCH (09:12)
[2020-08-16] MEDS: ASCORBIC ACID 500 MG TAB PO SCH (09:12)
[2020-08-16] MEDS: CHOLECALCIFEROL 25 MCG (1000 IU) TABLET PO SCH (09:12)
[2020-08-16 09:17] LABS: C Reactive Protein 1.3 mg/dL (0.0-0.8)
--- NOTE | 2020-08-16 15:30 | P.PN ---
Subjective Progress Note Date: 08/16/20 This 55-year-old male patient came into the emergency yesterday diagnosed having a COVID 19 related pneumonia. The patient was diagnosed with infection on 08/10/2020. pulse ox was 83%. He was getting short of breath. He also reports some nausea. He was fever and chills at home. He also had some diarrhea. His symptoms started exactly a week ago. His diagnosis was established on 08/10/2020. No abdominal pain. No altered mentation. He is otherwise a healthy individual.. The patient's blood work showed a LDH of 1640, his CRP was 87, d-dimer was 0.79, creatinine was at 1.3. Chest x-ray showed bilateral pulmonary infiltrates and currently the patient is on 2 L of oxygen by nasal cannula. He was started on Decadron. 08/14/2020 the patient is being seen in follow-up regarding his Covid 19 related pneumonia. He was hospitalized yesterday and he was started on Decadron and REM. On today's evaluation, his oxygenation is slightly gotten worse and he is currently a liters of oxygen nasal cannula. He remains on Lovenox 40 mg subcu for DVT prophylaxis and he is d-dimer was nonelevated. He is afebrile. She however, the patient is feeling well and denies having any worsening shortness of breath. 08/15/2020, the patient is still on the same treatment regarding his Covid 19 related pneumonia. He remains on 4 L of oxygen by nasal cannula.. His chest x- ray from today is showing stable following her bilateral pulmonary infiltrates, unchanged compared to yesterday. He still using incentive spirometer. He is still on steroids and is currently on Decadron and he is on day #3 of REM. Is LDH level is down to 1290, his CRP level is down to 25. His liver function tests have been also slightly abnormal. The there are all within same range. His CBC shows a white cell count of 6 with a hemoglobin of 14.8 and he still has some lymphopenia. His d-dimer at the time of admission was 0.79. 08/16/2020 the patient is on day 4 of REM is doing well is currently down to 2 L of oxygen by nasal cannula. He remains on steroids. No complaints. Doing well. Improving, essentially stable for now, no cough sputum production chest that is so wheezing. Using incentive spirometer. Objective - Vital Signs Vital signs: Vital Signs Temp 98.0 F 08/16/20 14:00 Pulse 60 08/16/20 14:00 Resp 16 08/16/20 14:00 BP 131/76 08/16/20 14:00 Pulse Ox 96 08/16/20 14:00 Intake & Output 08/15/20 08/16/20 08/16/20 18:59 06:59 18:59 Intake Total 520 Balance 520 Intake: Oral 520 Other: Voiding Method Toilet Toilet # Voids 2 - Exam The patient appeared well nourished and normally developed. Vital signs as documented. Head exam is unremarkable. No scleral icterus or corneal arcus noted. Neck is without jugular venous distension, thyromegaly, or carotid bruits. Carotid upstrokes are brisk bilaterally. Lungs are clear to auscultation and percussion. Cardiac exam reveals the PMI to be normally sized and situated. Rhythm is regular. First and second heart sounds normal. No murmurs, rubs or gallops. Abdominal exam reveals normal bowel sounds, no masses, no organomegaly and no aortic enlargement. Extremities are nonedematous and both femoral and pedal pulses are normal.Examination of the skin revealed no evidence of sig nificant rashes, suspicious appearing nevi or other concerning lesions.Neurologically, the patient is awake and alert and the patient does not have any focal neurological deficit. Cranial nerves are essentially intact. - Labs CBC & Chem 7: 08/15/20 07:52 08/15/20 07:52 Labs: Abnormal Lab Results - Last 24 Hours (Table) 08/16/20 Range/Units 06:06 Lactate Dehydrogenase 495 H (120-246) U/L C-Reactive Protein 1.3 H (0.0-0.8) mg/dL Microbiology - Last 24 Hours (Table) 08/12/20 22:03 Blood Culture - Preliminary Blood No Growth after 72 hours 08/12/20 22:03 Blood Culture - Preliminary Blood No Growth after 72 hours Assessment and Plan Plan: 1 acute Covid 19 related pneumonia, symptoms started approximately a week ago. Diagnosis established on 08/10/2020, clinically stable 2 acute hypoxic respiratory failure currently on 4 L nasal cannula further weaning down to 2 L of oxygen by nasal cannula 3 nausea and diarrhea secondary to above, improved 4 Thrombocytopenia and lymphopenia secondary to above, platelet counts of improved and continues to have some lymphopenia. 5 Mild transaminitis secondary to above Plan Oxygen will be weaned down to 2 L, he is using incentive spirometer and he is feeling better and he is feeling less short of breath. Lovenox 40 mg subcu every 24 hours Decadron 6 mg by mouth daily Remdesivir per protocol and the patient is currently on day #4 Vitamin C and vitamin D supplements in addition to losing Normal saline will be kept on the KVO We'll continue to follow. Complete total of 5 day course of REM and possible discharge home within the next 24-48 hours
--- NOTE | 2020-08-16 16:41 | P.PN ---
Subjective Progress Note Date: 08/16/20 Principal diagnosis: COVID Pneumonia Mr. Clayton is a 55-year-old male with a past medical history of gout coming in with a chief complaint of difficulty in breathing. Patient states that he was diagnosed with COVID 19 on 08/10. 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 Patient has been having fevers and myalgias for the past 1 week. He was also having generalized fatigue and weakness. Has been having fevers on and off. He reports nausea and loss of taste and smell. Reports some diarrhea as well. No blood in the stool. No abdominal pain. Patient mentions that his family members have been tested for Covid last year. Patient denies having any chest pain or palpitations. Denies having any hematuria or dysuria. He states that overall he feels very tired and wants to take rest. In the ER, patient had a chest x-ray done showing bilateral infiltrates. EKG showing sinus tachycardia. And blood work showing white count of 5.4, hemoglobin 15.3, platelets 103. D-dimer 0.79. Sodium 137, potassium 4.1, chloride 103, bicarbonate 29, BUN 21, creatinine 1.30. Ferritin 2550, AST 159, ALT 98, LDH 1640, CRP 87.6, albumin 3.1. On 08/14/2020 -patient was seen and examined at the bedside. He states that he feels less fatigued compared to yesterday. He still has mild difficulty in breathing. He denies having any fevers chills or rigors. No chest pain or p alpitations. No abdominal pain nausea vomiting or diarrhea. No dysuria or hematuria. On reviewing the vitals temperature of 98, heart rate 81, respiratory rate 18, blood pressure 136 x 82 saturating at 94% on 4 L of nasal cannula. On reviewing the labs white count of 6.4, hemoglobin 13.9, platelets 139. Sodium 141, potassium 4.4, chloride 104, bicarb 25, BUN 17, creatinine 1.0 AST 357, ALT 262. On 08/15/2020 -patient is seen and examined at the bedside. He is sitting up in a chair by the window and states that his breathing is better. He denies having any fevers chills or rigors. Patient is requiring 4 L of oxygen and saturating around 95%. He denies having any abdominal pain nausea vomiting or diarrhea. He states his myalgias have improved and his appetite is picking up. He denies having any abdominal pain nausea vomiting or diarrhea. No dysuria or hematuria. On reviewing the vitals temperature of 98.4, heart rate 61, respiratory 22, blood pressure 152 x 79. Reviewing labs white count of 6.6, hemoglobin 14.8, platelets 173. His hepatitis panel has come back negative. AST ALT have been slightly high and there is no uptrend. On 08/16/2020 - patient is seen and examined at bedside. He is sitting up in a chair by the bedside appears to be no acute distress. He is requiring 2- 3 L of oxygen to keep his sats above 95 %. His difficulty in breathing is improving but still has some exertional dyspnea. No chest pain or palpitations. No abdominal pain nausea vomiting or diarrhea. No dysuria or hematuria. On reviewing in his vitals temperature 90.8, heart rate 60, respiratory rate 16, blood pressure 1 31 x 76 saturating 96% on 2 L of nasal cannula. On reviewing the labs - d-dimer of 0.40, LDH 495, CRP 1.3. Active Medications Acetaminophen (Acetaminophen Tab 325 Mg Tab) 650 mg PO Q6HR PRN PRN Reason: Mild Pain or Fever > 100.5 Last Admin: 08/13/20 02:05 Dose: 650 mg Documented by: Allopurinol (Allopurinol 100 Mg Tab) 200 mg PO DAILY [facility] Last Admin: 08/16/20 09:12 Dose: 200 mg Documented by: Ascorbic Acid (Ascorbic Acid 500 Mg Tab) 500 mg PO DAILY [facility] Last Admin: 08/16/20 09:12 Dose: 500 mg Documented by: Cholecalciferol (Cholecalciferol 25 Mcg (1000 Iu) Tablet) 25 mcg PO DAILY [facility] Last Admin: 08/16/20 09:12 Dose: 25 mcg Documented by: Dexamethasone Sodium Phosphate (Dexamethasone Sod Phosphate 10 Mg/Ml 1 Ml Vial) 6 mg PO DAILY [facility] Last Admin: 08/16/20 09:11 Dose: 6 mg Documented by: Enoxaparin Sodium (Enoxaparin 40 Mg/0.4 Ml Syringe) 40 mg SQ DAILY [facility] Last Admin: 08/16/20 09:11 Dose: 40 mg Documented by: Sodium Chloride (Saline 0.9%) 1,000 mls @ 20 mls/hr IV .Q24H [facility] Last Admin: 08/15/20 19:33 Dose: 20 mls/hr Documented by: Remdesivir 100 mg/ Sodium (Chloride) 250 mls @ 250 mls/hr IVPB DAILY [facility] Stop: 08/17/20 09:59 Last Admin: 08/16/20 09:11 Dose: 250 mls/hr Documented by: Ibuprofen (Ibuprofen 800 Mg Tab) 800 mg PO Q8H PRN PRN Reason: Mild Pain or Fever > 100.5 Naloxone HCl (Naloxone 0.4 Mg/Ml 1 Ml Vial) 0.2 mg IV Q2M PRN PRN Reason: Opioid Reversal Ondansetron HCl (Ondansetron 4 Mg/2 Ml Vial) 4 mg IVP Q8HR PRN PRN Reason: Nausea And Vomiting Zinc Sulfate (Zinc Sulfate 220 Mg Cap) 220 mg PO DAILY [facility] Last Admin: 08/16/20 09:12 Dose: 220 mg Documented by: Objective - Vital Signs Vital signs: Vital Signs Temp 97.8 F 08/16/20 07:53 Pulse 55 L 08/16/20 07:53 Resp 18 08/16/20 07:53 BP 151/87 08/16/20 07:53 Pulse Ox 95 08/16/20 07:53 Intake & Output 08/15/20 08/16/20 08/16/20 18:59 06:59 18:59 Intake Total 520 Balance 520 Intake: Oral 520 Other: Voiding Method Toilet Toilet # Voids 2 - Exam PHYSICAL EXAMINATION: GENERAL: The patient is alert and oriented x3, not in any acute distress. HEENT: Pupils are round and equally reacting to light. EOMI. No scleral icterus. CARDIOVASCULAR: S1 and S2 present. PULMONARY: Bilateral coarse breath sounds. No crackles. ABDOMEN: Abdomen is soft. Nontender. Nondistended. Normal bowel sounds. MUSCULOSKELETAL: No joint swelling or deformity. EXTREMITIES: No cyanosis, clubbing, or pedal edema. NEUROLOGICAL: Gross neurological examination did not reveal any focal deficits. SKIN: No rash - Labs CBC & Chem 7: 08/15/20 07:52 08/15/20 07:52 Labs: Abnormal Lab Results - Last 24 Hours (Table) 08/16/20 Range/Units 06:06 Lactate Dehydrogenase 495 H (120-246) U/L C-Reactive Protein 1.3 H (0.0-0.8) mg/dL Microbiology - Last 24 Hours (Table) 08/12/20 22:03 Blood Culture - Preliminary Blood No Growth after 72 hours 08/12/20 22:03 Blood Culture - Preliminary Blood No Growth after 72 hours Assessment and Plan Assessment: ASSESSMENT Acute hypoxic respiratory failure secondary to COVID pneumonia Nausea and diarrhea - 2 to Covid infection Transaminitis Lymphopenia and thrombocytopenia Elevated inflammatory markers Chronic kidney disease stage II Mild protein calorie malnutrition Obesity with BMI of 34.0 PLAN: Patient improving symptomatically in terms of his respiratory status, we will try to wean him off oxygen. Continue on Decadron, Lovenox, and zinc, vitamin C supplements. On Remdesevir day # 4 . There is an uptrend of AST ALT, could be due to Covid infection. Hepatitis panel negative. Will continue monitoring chest x-ray and inflammatory markers. Encouraged to use incentive spirometry and activity as tolerated. Anticipate discharge in the next 24-48 hours.
[2020-08-16] MEDS: SODIUM CHLORIDE 0.9% 1,000 ML IV SCH (23:27)
[2020-08-17] MEDS: ENOXAPARIN 40 MG/0.4 ML SYRINGE SQ SCH (08:50)
[2020-08-17] MEDS: DEXAMETHASONE SOD PHOSPHATE 10 MG/ML 1 ML VIAL PO SCH (08:50)
[2020-08-17] MEDS: CHOLECALCIFEROL 25 MCG (1000 IU) TABLET PO SCH (08:50)
[2020-08-17] MEDS: REMDESIVIR 100 MG in SODIUM CHLORIDE 0.9% 250 ML IVPB SCH (08:50)
[2020-08-17] MEDS: allopurinoL 100 MG TAB PO SCH (08:51)
[2020-08-17] MEDS: ZINC SULFATE 220 MG CAP PO SCH (08:51)
[2020-08-17] MEDS: ASCORBIC ACID 500 MG TAB PO SCH (08:51)
[2020-08-17 12:58] LABS: C Reactive Protein 0.6 mg/dL (0.0-0.8)
[2020-08-17 14:55] VITALS: BP 115/65; PULSE 73; RESP 17; TEMP 97
--- NOTE | 2020-08-17 16:23 | P.DS ---
Providers Date of admission: 08/12/20 23:15 Expected date of discharge: 08/17/20 Attending physician: Gen Floyd MD Consults: 08/12/20 22:47 Consult Physician Routine Consulting Provider: Mylene Chu Consult Reason/Comments: COVID; Hypoxia Do you want consulting provider notified?: Yes Primary care physician: Zion Doherty [place] [facility] Course: Diagnosis Acute hypoxic respiratory failure secondary to COVID pneumonia Nausea and diarrhea -secondary to Covid infection Transaminitis Lymphopenia and thrombocytopenia Elevated inflammatory markers Chronic kidney disease stage II Mild protein calorie malnutrition Obesity with BMI of 34.0 Discharge disposition Patient is being discharged in a stable condition with guarded prognosis to home. Patient will follow-up with Dr. Doherty in the outpatient setting upon discharge. Patient is to continue with dexamethasone along with zinc and vitamin supplements as scheduled. Patient instructed to follow-up with cheyenne samaniego in the outpatient setting in 2 weeks. Total time taken is greater than 35 minutes. Hospital course COVID Pneumonia Mr. Clayton is a 55-year-old male with a past medical history of gout coming in with a chief complaint of difficulty in breathing. Patient states that he was diagnosed with COVID 19 on 08/10. 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 Patient has been having fevers and myalgias for the past 1 week. He was also having generalized fatigue and weakness. Has been having fevers on and off. He reports nausea and loss of taste and smell. Reports some diarrhea as well. No blood in the stool. No abdominal pain. Patient mentions that his family members have been tested for Covid last year. Patient denies having any chest pain or palpitations. Denies having any hematuria or dysuria. He states that overall he feels very tired and wants to take rest. In the ER, patient had a chest x-ray done showing bilateral infiltrates. EKG showing sinus tachycardia. And blood work showing white count of 5.4, hemoglobin 15.3, platelets 103. D-dimer 0.79. Sodium 137, potassium 4.1, chloride 103, bicarbonate 29, BUN 21, creatinine 1.30. Ferritin 2550, AST 159, ALT 98, LDH 1640, CRP 87.6, albumin 3.1. On 08/14/2020 -patient was seen and examined at the bedside. He states that he feels less fatigued compared to yesterday. He still has mild difficulty in breathing. He denies having any fevers chills or rigors. No chest pain or palpitations. No abdominal pain nausea vomiting or diarrhea. No dysuria or hematuria. On reviewing the vitals temperature of 98, heart rate 81, respiratory rate 18, blood pressure 136 x 82 saturating at 94% on 4 L of nasal cannula. On reviewing the labs white count of 6.4, hemoglobin 13.9, platelets 139. Sodium 141, potassium 4.4, chloride 104, bicarb 25, BUN 17, creatinine 1.0 AST 357, ALT 262. On 08/15/2020 -patient is seen and examined at the bedside. He is sitting up in a chair by the window and states that his breathing is better. He denies having any fevers chills or rigors. Patient is requiring 4 L of oxygen and saturating around 95%. He denies having any abdominal pain nausea vomiting or diarrhea. He states his myalgias have improved and his appetite is picking up. He denies having any abdominal pain nausea vomiting or diarrhea. No dysuria or hematuria. On reviewing the vitals temperature of 98.4, heart rate 61, respiratory 22, blood pressure 152 x 79. Reviewing labs white count of 6.6, hemoglobin 14.8, platelets 173. His hepatitis panel has come back negative. AST ALT have been slightly high and there is no uptrend. On 08/16/2020 - patient is seen and examined at bedside. He is sitting up in a chair by the bedside appears to be no acute distress. He is requiring 2- 3 L of oxygen to keep his sats above 95 %. His difficulty in breathing is improving but still has some exertional dyspnea. No chest pain or palpitations. No abdominal pain nausea vomiting or diarrhea. No dysuria or hematuria. On reviewing in his vitals temperature 90.8, heart rate 60, respiratory rate 16, blood pressure 1 31 x 76 saturating 96% on 2 L of nasal cannula. On reviewing the labs - d-dimer of 0.40, LDH 495, CRP 1.3. 08/17/2020 Patient is seen and evaluated in follow-up with no acute overnight issues. Patient was maintained on 2 L of oxygen and underwent home O2 eval with lowest oxygen reading being 91% on room air and does not qualify for oxygen. Patient has maintained 95% room air with no reports of worsening shortness of breath. Scheduled to receive his last dose of Remdesivir today and will continue on dexamethasone along with vitamin and zinc supplements in the outpatient setting. Will also be instructed to follow-up with pulmonary outpatient along with primary care provider. Currently no reports of chest pain, shortness of breath, or palpitations. Patient is afebrile. No reports of nausea or vomiting and patient is tolerating diet. Patient instructed to continue using incentive spirometer at least 10 times every hour while awake even in the outpatient setting. Patient will be discharged home today. On exam vital signs are stable. Cardio S1, S2 are muffled. Respiratory system shows diminished breath sounds at the bases with no wheezing or rhonchi noted. Abdomen is soft and nontender. Nervous system shows no focal deficits. Please refer to medication reconciliation sheet for a list of medications. Patient Condition at Discharge: Stable Plan - Discharge Summary Discharge Rx Participant: No New Discharge Prescriptions: New Acetaminophen Tab [Tylenol] 650 mg PO Q6HR PRN #30 tab PRN Reason: Mild Pain Or Fever > 100.5 Dexamethasone 6 mg PO DAILY 6 Days #6 tablet Zinc Sulfate [Orazinc] 220 mg PO DAILY 30 Days #30 cap Ascorbic Acid [Vitamin C] 500 mg PO DAILY 30 Days #30 tab Cholecalciferol [Vitamin D3 (25 Mcg = 1000 Iu)] 25 mcg PO DAILY 30 Days #30 tablet Continue allopurinoL [Zyloprim] 200 mg PO DAILY Mancos-3 Fatty Acids/Fish Oil [Fish Oil 1,000 mg Softgel] 1 cap PO DAILY Discharge Medication List allopurinoL [Zyloprim] 200 mg PO DAILY 02/21/14 [History] Mancos-3 Fatty Acids/Fish Oil [Fish Oil 1,000 mg Softgel] 1 cap PO DAILY 08/12/20 [History] Acetaminophen Tab [Tylenol] 650 mg PO Q6HR PRN #30 tab 08/17/20 [Rx] Ascorbic Acid [Vitamin C] 500 mg PO DAILY 30 Days #30 tab 08/17/20 [Rx] Cholecalciferol [Vitamin D3 (25 Mcg = 1000 Iu)] 25 mcg PO DAILY 30 Days #30 tablet 08/17/20 [Rx] Dexamethasone 6 mg PO DAILY 6 Days #6 tablet 08/17/20 [Rx] Zinc Sulfate [Orazinc] 220 mg PO DAILY 30 Days #30 cap 08/17/20 [Rx] Follow up Appointment(s)/Referral(s): Huber Doherty MD [Primary Care Provider] - 1-2 days Mylene Chu MD [STAFF PHYSICIAN] - 2 Weeks Activity/Diet/Wound Care/Special Instructions: Activity Limited until follow-up Follow-up with primary care provider upon discharge Follow-up with pulmonary outpatient continue with dexamethasone until finished continue Vitamin supplements Continue with incentive spirometer at least 10 times every hour while awake Continue to isolate, frequent handwashing, wearing a mask, social distancing Encourage fluids and rest Monitor for her and treat with Tylenol Discharge Disposition: HOME SELF-CARE
== END 2020-08-17 16:43 | disposition home or self-care (01) | DRG 177 ==
LOC: EC 19:54 → 4SSUR 23:15 → 1SOBS 08-13 03:14 → 6NMEDSUR 08-13 17:57
PROVIDERS: ADMIT Internal Medicine; ATTEND Internal Medicine
PROC: XW033E5 Introduction of Remdesivir Anti-infective into Peripheral Vein, Percutaneous Approach, New Technology Group 5 (ICD-10-PCS; principal; 2020-08-15)
DX: U07.1 COVID-19 (principal); J12.82 Pneumonia due to coronavirus disease 2019; J96.01 Acute respiratory failure with hypoxia; N17.9 Acute kidney failure, unspecified; E44.1 Mild protein-calorie malnutrition; M10.9 Gout, unspecified; Z87.820 Personal history of traumatic brain injury; E86.0 Dehydration; D69.6 Thrombocytopenia, unspecified; D72.810 Lymphocytopenia; N18.2 Chronic kidney disease, stage 2 (mild); Z68.34 Body mass index [BMI] 34.0-34.9, adult
CPT/HCPCS: 36415; 71045; 80053; 80074; 82728; 83605; 83615; 83735; 84145; 85025; 85379; 85610; 85730; 86140; 87040; 93005; 94640; 96361; 96365; 96366; 96367; 96368; 99285

== ENCOUNTER → 2021-03-12 | Outpatient (CLI) | payer MEDICAID ==
[2021-03-12 16:57] LABS: HCT 51.1 % (39.6-50.0); HGB 16.9 g/dL (13.0-17.0); MCH 31.3 pg (27.0-32.0); MCHC 33.1 g/dL (32.0-37.0); MCV 94.6 fL (80.0-97.0); Mean Platelet Volume 10.2 fL (9.5-12.2); Platelet Count 215 X 10*3/uL (140-440); RDW 13.1 % (11.5-14.5); WBC 6.53 X 10*3/uL (4.50-10.00)
[2021-03-12 17:15] LABS: African American GFR (CKD) 63.7 (60.0-200.0); Albumin 4.5 g/dL (3.8-4.9); Albumin/Globulin Ratio 2.05 (1.60-3.17); Anion Gap 12.5 mmol/L (4.00-12.00); BUN/Creat Ratio 10.57 Ratio (12.00-20.00); Blood Urea Nitrogen 14.8 mg/dL (9.0-27.0); Calcium 9.1 mg/dL (8.7-10.3); Carbon Dioxide 24.5 mmol/L (21.6-31.8); Chol/HDL Ratio 5.87 Ratio; Globulin 2.2 g/dL (1.6-3.3); LDL Cholesterol,Calculated 158.4 mg/dL (0.0-131.0); Potassium 4.6 mmol/L (3.5-5.5); Prostate Specific Antigen 1.6 ng/mL (0.00-3.50); Total Bilirubin 0.7 mg/dL (0.30-1.20); Total Protein 6.7 g/dL (6.2-8.2); VLDL Calculation 26.6 mg/dL (5.00-40.00)
== END | disposition home or self-care (01) ==
LOC: LABWHC1 08:27
PROVIDERS: ATTEND Family Medicine
DX: Z00.00 Encounter for general adult medical examination without abnormal findings (principal); Z86.16 Personal history of COVID-19
CPT/HCPCS: 36415; 80053; 80061; 84153; 85027; 86769

== ENCOUNTER → 2022-04-21 | Outpatient (CLI) | payer MEDICAID ==
[2022-04-21 15:02] LABS: HCT 50.6 % (39.6-50.0); HGB 17.2 g/dL (13.0-17.0); MCH 32.3 pg (27.0-32.0); MCV 94.9 fL (80.0-97.0); Mean Platelet Volume 9.8 fL (9.5-12.2); NRBC Per 100 WBC 0 /100 WBCS (0.0-0.0); Platelet Count 211 X 10*3/uL (140-440); RBC 5.33 X 10*6/uL (4.40-5.60); RDW 12.7 % (11.5-14.5); WBC 6.44 X 10*3/uL (4.50-10.00)
[2022-04-21 16:44] LABS: ALT 11 U/L (10-49); AST 22 U/L (14-35); African American GFR (CKD) 50.8 (60.0-200.0); Albumin 4.4 g/dL (3.8-4.9); Albumin/Globulin Ratio 1.69 (1.60-3.17); Alkaline Phosphatase 74 U/L (41-126); BUN/Creat Ratio 15.24 Ratio (12.00-20.00); Blood Urea Nitrogen 25.6 mg/dL (9.0-27.0); Calcium 9.4 mg/dL (8.7-10.3); Carbon Dioxide 26.5 mmol/L (20.0-27.5); Chloride 102 mmol/L (96-109); Chol/HDL Ratio 7.02 Ratio; Globulin 2.6 g/dL (1.6-3.3); Glucose 104 mg/dL (70-110); LDL Cholesterol,Calculated 182.1 mg/dL (0.0-131.0); Non-African American GFR(CKD) 43.8 (60.0-200.0); Potassium 4.2 mmol/L (3.5-5.5); Sodium 140 mmol/L (135-145)
== END | disposition home or self-care (01) ==
LOC: LABWHC1 09:40
PROVIDERS: ATTEND Family Medicine
DX: Z00.01 Encounter for general adult medical examination with abnormal findings (principal)
CPT/HCPCS: 36415; 80053; 80061; 84153; 85027

== ENCOUNTER → 2022-10-19 | Outpatient (CLI) | payer MEDICAID ==
[2022-10-19 15:16] LABS: ALT 22 U/L (10-49); AST 24 U/L (14-35); African American GFR (CKD) 53.9 (60.0-200.0); Albumin 4.5 g/dL (3.8-4.9); Albumin/Globulin Ratio 1.88 (1.60-3.17); Alkaline Phosphatase 71 U/L (41-126); BUN/Creat Ratio 10.69 Ratio (12.00-20.00); Blood Urea Nitrogen 17.1 mg/dL (9.0-27.0); Calcium 9.3 mg/dL (8.7-10.3); Chloride 105 mmol/L (96-109); Chol/HDL Ratio 6.03 Ratio; Globulin 2.4 g/dL (1.6-3.3); Glucose 108 mg/dL (70-110); LDL Cholesterol,Calculated 161.2 mg/dL (0.0-131.0); Non-African American GFR(CKD) 46.5 (60.0-200.0); Potassium 4.5 mmol/L (3.5-5.5); Sodium 144 mmol/L (135-145); Total Protein 6.9 g/dL (6.2-8.2)
== END | disposition home or self-care (01) ==
LOC: LABWHC1 09:09
PROVIDERS: ATTEND Family Medicine
DX: I10 Essential (primary) hypertension (principal); E78.2 Mixed hyperlipidemia
CPT/HCPCS: 36415; 80053; 80061

== ENCOUNTER 2023-11-21 09:29 | Day surgery (SDC) | payer MEDICAID ==
[2023-11-21] MEDS: IV FLUID CONTINUATION 1,000 ML IV ONE (10:11)
[2023-11-21 10:15] VITALS: TEMP 97.3
[2023-11-21] MEDS: LACTATED RINGERS 1,000 ML IV SCH (10:19)
[2023-11-21] MEDS ORDERED: LIDOCAINE 1% INJ 10MG/ML (20 ML MDV) ONE (11:30)
[2023-11-21] MEDS ORDERED: PROPOFOL 10 MG/ML 20 ML VIAL IV ONE (11:30)
--- NOTE | 2023-11-21 11:46 | P.PCN ---
Date of Procedure: 11/21/23 Procedure(s) Performed: BRIEF HISTORY: Patient is a 58-year-old pleasant white male scheduled for an elective colonoscopy as a part of screening for colon cancer. PROCEDURE PERFORMED: Colonoscopy with snare polypectomy. PREOPERATIVE DIAGNOSIS: Screening for colon cancer. IV sedation per Anesthesia. PROCEDURE: After informed consent was obtained, the patient, was brought into the endoscopy unit. IV sedation was administered by Anesthesia under continuous monitoring. Digital rectal examination was normal. Initially the Olympus CF-160 flexible video colonoscope was then inserted in the rectum, gradually advanced into the cecum without any difficulty. Careful examination was performed as the scope was gradually being withdrawn. Ileocecal valve and the appendiceal orifice were visualized and appeared normal. Prep was excellent. Mucosa of the cecum, ascending colon, transverse colon appeared normal. In the descending colon there was a 5 mm polyp that was removed by cold snare polypectomy. In the sigmoid colon there was a 1 cm polyp removed by snare polypectomy. Scattered left-sided diverticulosis seen. Rest of the sigmoid colon, and rectum appeared normal. Scattered sigmoid diverticulosis. Retroflexion was performed in the rectum and no lesions were seen. The patient tolerated the procedure well. IMPRESSION: 5 mm descending colon polyp status post cold snare polypectomy 1 cm sigmoid colon polyp status post snare polypectomy Scattered sigmoid diverticula RECOMMENDATIONS: Findings of this examination were discussed with the patient as well as his family. He was advised to follow-up with the biopsy results. If the biopsy reveals adenoma he can have repeat colonoscopy in 3 years..
[2023-11-21 11:54] VITALS: PULSE 74
[2023-11-21 12:37] VITALS: BP 133/76; RESP 20
== END 2023-11-21 12:38 | disposition home or self-care (01) ==
LOC: ORWHC2ENDO 09:29
PROVIDERS: ATTEND Internal Medicine Gastroenterology
DX: Z12.11 Encounter for screening for malignant neoplasm of colon (principal); D12.4 Benign neoplasm of descending colon; D12.5 Benign neoplasm of sigmoid colon; K57.30 Diverticulosis of large intestine without perforation or abscess without bleeding; I10 Essential (primary) hypertension; E78.5 Hyperlipidemia, unspecified; Z79.899 Other long term (current) drug therapy
CPT/HCPCS: 45380; 45385; J2001; J2704; 88305

== ENCOUNTER → 2023-12-27 | Outpatient (CLI) | payer MEDICAID ==
--- NOTE | 2024-02-16 14:02 | XR ---
EXAMINATION TYPE: XR Hip Complete RT DATE OF EXAM: 12/27/2023 INDICATION: Patient age:Male; 59 years old; Reason for study: pain from exercising; PHH. COMPARISON: None. TECHNIQUE: The right hip was examined in the frontal and lateral projections. FINDINGS: No evidence of any acute osseous pathology, joint dislocation, or soft tissue swelling. No significant joint spacing or acetabular spurring demonstrated. 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 IMPRESSION: 1. No acute osseous pathology. 2. 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 Correlate for femoral acetabular impingement mirza iraheta , [facility], , 02/16/2024 2:00 PM
== END | disposition home or self-care (01) ==
LOC: RADXRMAIN 13:45
PROVIDERS: ATTEND Family Medicine
DX: M25.551 Pain in right hip (principal)
CPT/HCPCS: 72100; 73502

== ENCOUNTER → 2024-03-13 | Outpatient (CLI) | payer MEDICAID ==
[2024-03-13 16:03] LABS: HCT 49.7 % (39.6-50.0); HGB 16.5 g/dL (13.0-17.0); MCH 31.7 pg (27.0-32.0); MCHC 33.2 g/dL (32.0-37.0); MCV 95.6 FL (80.0-97.0); NRBC Per 100 WBC 0 X 10*3/uL (0.00-0.01); Platelet Count 207 X 10*3/uL (140-440); RDW 13.4 % (11.5-14.5); WBC 6.91 X 10*3/uL (4.50-10.00)
[2024-03-13 16:55] LABS: BUN/Creat Ratio 13.79 Ratio (12.00-20.00); Blood Urea Nitrogen 19.3 mg/dL (9.0-27.0); Carbon Dioxide 27.8 mmol/L (21.6-31.8); Chloride 103 mmol/L (96-109); Chol/HDL Ratio 4.04 Ratio; Glucose 107 mg/dL (70-110); LDL Cholesterol,Calculated 99.9 mg/dL (0.0-131.0); Potassium 4.7 mmol/L (3.5-5.5); Sodium 143 mmol/L (135-145); Uric Acid 6.5 mg/dL (3.7-8.7); VLDL Calculation 19.72 mg/dL (5.00-40.00)
[2024-03-13 16:56] LABS: ALT 45 U/L (10-49); AST 47 U/L (14-35); Albumin 4.6 g/dL (3.8-4.9); Albumin/Globulin Ratio 1.84 Ratio (1.60-3.17); Alkaline Phosphatase 72 U/L (41-126); Calcium 9.5 mg/dL (8.7-10.3); Globulin 2.5 g/dL (1.6-3.3); Prostate Specific Antigen 1.47 ng/mL (0.000-4.500); Total Bilirubin 0.7 mg/dL (0.3-1.2); Total Protein 7.1 g/dL (6.2-8.2)
== END | disposition home or self-care (01) ==
LOC: LABWHC1 09:32
PROVIDERS: ATTEND Family Medicine
CPT/HCPCS: 36415; 80053; 80061; 84153; 84550; 85027

== ENCOUNTER → 2024-09-04 | Outpatient (CLI) | payer MEDICAID ==
[2024-09-04 16:21] LABS: ALT 36 U/L (10-49); AST 31 U/L (14-35); Chol/HDL Ratio 3.71 Ratio; LDL Cholesterol,Calculated 90.9 mg/dL (0.0-131.0); VLDL Calculation 12.08 mg/dL (5.00-40.00)
== END | disposition home or self-care (01) ==
LOC: LABWHC1 08:48
PROVIDERS: ATTEND Family Medicine
DX: E78.2 Mixed hyperlipidemia (principal)
CPT/HCPCS: 36415; 80061; 84450; 84460